=== PATIENT | male | born 1975 | race Two or more races ===

== ENCOUNTER 2018-10-30 15:28 | Outpatient (CLI) | payer OTHER | END 2018-10-30 15:30 | disposition home or self-care (01) | LOC: SONOGRAMA 15:28 | DX: R22.32 Localized swelling, mass and lump, left upper limb (principal) ==

== ENCOUNTER 2019-05-27 09:45 | Outpatient (CLI) | payer OTHER | END 2019-05-27 09:55 | disposition home or self-care (01) | LOC: LAB 09:45 | DX: N40.1 Benign prostatic hyperplasia with lower urinary tract symptoms (principal); N39.8 Other specified disorders of urinary system ==

== ENCOUNTER 2019-05-27 10:10 | Outpatient (CLI) | payer OTHER | END 2019-05-27 10:24 | disposition home or self-care (01) | LOC: SONOGRAMA 10:10 → MAMO-SONO 10:45 | DX: N20.0 Calculus of kidney (principal) ==